=== PATIENT | female | born 1995 | race Caucasian/White ===

== ENCOUNTER 2017-02-02 16:12 | Inpatient (IN) | payer BC ==
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
[2017-02-02] MEDS ORDERED: LIDOCAINE 2% JELLY 20 ML (UROJECT) ONE ×2 (16:47→16:49)
[2017-02-02 17:03] LABS: % IMMATURE GRANULYOCYTES 0.3 % (0.0-1.1); ABSOLUTE IMMATURE GRANULOCYTES 0.02 10^3/uL (0.00-0.10); ADD DIFF? NO; ADD MORPH? NO; ADD SCAN? NO; ATYPICAL LYMPHOCYTE FLAG 0 (0-99); FRAGMENT RBC FLAG 0 (0-99); HEMATOCRIT 42.3 % (38.0-47.0); HEMOGLOBIN 14.1 g/dL (12.6-16.3); LEFT SHIFT FLG 0 (0-99); LIPEMIA HEMOLYSIS FLAG 80 (0-99); MEAN CELL HEMOGLOBIN 32.6 pg (27.9-34.1); MEAN CELL HEMOGLOBIN CONCENTR. 33.3 g/dL (32.4-36.7); MEAN CELL VOLUME 97.7 fL (81.5-99.8); MEAN PLATELET VOLUME 10.2 fL (8.7-11.7); PLATELET CLUMPS FLAG 20 (0-99); PLATELET COUNT 299 10^3/uL (150-400); RED BLOOD CELL COUNT 4.33 10^6/uL (4.18-5.33); RED CELL DISTRIBUTION WIDTH 13.1 % (11.5-15.2)
[2017-02-02 17:15] LABS: ANION GAP 8 mEq/L (8-16); CARBON DIOXIDE 22 mEq/l (22-31); CHLORIDE 107 mEq/L (97-110); CREATININE 0.6 mg/dL (0.6-1.0); ETHANOL SERUM < 10 mg/dL (0-10); GLOMERULAR FILTRATION RATE > 60; GLUCOSE 92 mg/dL (70-100); SALICYLATE < 1.0 mg/dL (2.0-20.0); SODIUM 137 mEq/L (134-144)
[2017-02-02] MEDS ORDERED: LORazepam 1 MG TAB ONE (19:21)
[2017-02-02] MEDS ORDERED: ALPRAZolam 0.25 MG TAB ONE (19:33)
[2017-02-02] MEDS ORDERED: ALPRAZolam 0.25 MG TAB PO ONE (19:41)
[2017-02-03] MEDS ORDERED: MELATONIN 3 MG TAB PO PRN (01:10)
[2017-02-03] MEDS ORDERED: MAG HYDROX/AL HYDROX/SIMETH 30 ML UDCUP PO PRN (01:11)
[2017-02-03] MEDS ORDERED: ACETAMINOPHEN 325 MG TAB PO PRN (01:11)
[2017-02-03] MEDS ORDERED: MAGNESIUM HYDROXIDE 30 ML UDCUP PO PRN (01:11)
[2017-02-03] MEDS ORDERED: GABAPENTIN 100 MG CAP PO SCH (01:15)
[2017-02-03] MEDS: valACYclovir 500 MG TAB PO SCH ×2 (01:30→21:09)
[2017-02-03] MEDS: FLUoxetine 20 MG CAP PO SCH ×2 (01:30→21:10)
[2017-02-03] MEDS: LORazepam 0.5 MG TAB PO PRN ×2 (01:31→21:15)
[2017-02-03] MEDS: PRAZOSIN HCL 5 MG CAP PO SCH ×2 (01:31→21:10)
[2017-02-03] MEDS ORDERED: ZOLPIDEM TARTRATE 5 MG TAB PO PRN (11:28)
--- NOTE | 2017-02-03 15:29 | BCON ---
[f rep st] BEHAVIORAL HEALTH CONSULTATION INTERNAL MEDICINE CONSULTATION DATE OF CONSULTATION: 02/03/2017 REFERRING PHYSICIAN: Dr. Farah REASON FOR REFERRAL: Medical clearance for inpatient behavioral health stay. HISTORY OF PRESENT ILLNESS: The patient came to the emergency department with her friends voluntarily due to suicidal ideation and self-harm. She had been cutting herself with an exacerbation of anxiety. She was evaluated by the mental health team and admitted for further psychiatric care. She currently feels tired. Otherwise, she is without any acute complaints. PAST MEDICAL HISTORY: 1. Psychiatric issues with diagnoses of PTSD, anxiety, OCD and depression. 2. Herpes simplex virus, both oral and genital. 3. 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 PAST SURGICAL HISTORY: She has had facial reconstruction surgery. MEDICATIONS: 1. Fluoxetine 40 mg p.o. daily. 2. Gabapentin 100 mg p.o. daily. 3. Prazosin 5 mg p.o. daily. SOCIAL HISTORY: She is a nonsmoker. She uses alcohol. She lives with roommates. She works in [employer] at the [employer]. FAMILY HISTORY: Noncontributory. REVIEW OF SYSTEMS: She denies pain, dyspnea, cough, chest pain, palpitations, nausea, vomiting, constipation, diarrhea, weight gain or weight loss, dysuria, urinary frequency, joint pain or joint swelling, and otherwise a 10-point review of systems is negative. PHYSICAL EXAMINATION: VITAL SIGNS: From 1:18 this morning, blood pressure was 111/65, heart rate was 73, respiratory rate was 12, oxygen saturation was 97% on room air. Temperature was 36.7 degrees centigrade. Her weight is 52.2 kg for a body mass index of 19.7. GENERAL: This is a well-nourished, well- developed woman, who appears her chronologic age, cooperative and in no acute distress. HEENT: Extraocular movements are intact. Pupils are equal, round, and reactive to light. Mucous membranes are moist. NECK: Supple. HEART: There is a regular rate and rhythm with no murmurs, rubs, or gallops. LUNGS: Clear to auscultation bilaterally. ABDOMEN: Soft, nontender, nondistended with normoactive bowel sounds. EXTREMITIES: There is no cyanosis, clubbing, or edema. NEUROLOGIC: She is alert and oriented x3. Cranial nerves 2 through 12 are grossly intact. There is no focal weakness and sensation is intact to light touch. SKIN: She has dozens of very shallow superficial lacerations on her left upper arm. There is no associated erythema, swelling or purulence. LABORATORY STUDIES: Ordered in the emergency department. CBC was overall within normal limits. She had a minor decrement of absolute lymphocytes of 0.85 and of absolute eosinophils at 0.01, of no clinical significance. Serum chemistry revealed normal renal function and electrolytes. Beta HCG was negative for . Toxicology in the serum was negative for salicylates, acetaminophen or ethyl alcohol, and in the urine was non-negative for marijuana and benzodiazepines but otherwise negative for substances of abuse. ASSESSMENT/RECOMMENDATIONS: 1. Psychiatric issues pending further evaluation and management per Psychiatry and the mental health team. 2. Superficial lacerations. I expect that these will heal spontaneously. 3. History of herpes simplex virus. I see that her valacyclovir has been continued and this is appropriate given that with her acute stress, she is at greater risk for a recurrence. I see no medical contraindications to the patient's continued stay on the inpatient behavioral health unit or to any psychiatric medications or procedures. Thank you very much for including me in the care of this patient and please do not hesitate to contact me or the hospitalist service should there be need for further medical evaluation. /[id number]/MODL MTDD
[2017-02-03] MEDS: GABAPENTIN 300 MG CAP PO SCH ×2 (16:15→21:10)
[2017-02-03] MEDS ORDERED: PRAZOSIN HCL 5 MG CAP PO SCH (21:00)
[2017-02-03] MEDS: MELATONIN 3 MG TAB PO SCH (21:09)
[2017-02-03] MEDS: OLANZapine DISINTEGR 5 MG TAB PO PRN (22:36)
[2017-02-04] MEDS: GABAPENTIN 300 MG CAP PO SCH ×3 (10:53→20:24)
[2017-02-04] MEDS: LORazepam 0.5 MG TAB PO PRN ×2 (12:14→16:18)
[2017-02-04] MEDS ORDERED: ZOLPIDEM TARTRATE 5 MG TAB PO PRN (14:40)
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
[2017-02-04] MEDS: OLANZapine DISINTEGR 5 MG TAB PO PRN (15:46)
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
[2017-02-04] MEDS: MELATONIN 3 MG TAB PO SCH (20:24)
[2017-02-04] MEDS: FLUoxetine 20 MG CAP PO SCH (20:24)
[2017-02-04] MEDS: valACYclovir 500 MG TAB PO SCH (20:24)
[2017-02-04] MEDS: PRAZOSIN HCL 5 MG CAP PO SCH (20:25)
[2017-02-05] MEDS: LORazepam 0.5 MG TAB PO PRN ×3 (07:44→20:43)
[2017-02-05] MEDS: GABAPENTIN 300 MG CAP PO SCH ×2 (07:44→15:45)
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
[2017-02-05] MEDS: OLANZapine DISINTEGR 5 MG TAB PO PRN ×2 (15:45→23:33)
[2017-02-05] MEDS: buPROPion XL 150 MG TAB PO SCH (15:45)
[2017-02-05] MEDS: valACYclovir 500 MG TAB PO SCH (20:43)
[2017-02-05] MEDS: PRAZOSIN HCL 1 MG CAP PO SCH (20:43)
[2017-02-05] MEDS: PRAZOSIN HCL 5 MG CAP PO SCH (20:43)
[2017-02-05] MEDS: MELATONIN 3 MG TAB PO SCH (20:43)
[2017-02-05] MEDS: GABAPENTIN 400 MG CAP PO SCH (20:45)
[2017-02-06] MEDS: LORazepam 0.5 MG TAB PO PRN ×4 (06:19→18:39)
[2017-02-06] MEDS: GABAPENTIN 400 MG CAP PO SCH ×3 (09:34→22:34)
[2017-02-06] MEDS: buPROPion XL 150 MG TAB PO SCH (09:35)
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
[2017-02-06] MEDS: OLANZapine DISINTEGR 5 MG TAB PO PRN ×2 (16:45→22:34)
[2017-02-06] MEDS: MELATONIN 3 MG TAB PO SCH (22:32)
[2017-02-06] MEDS: valACYclovir 500 MG TAB PO SCH (22:32)
[2017-02-06] MEDS: PRAZOSIN HCL 5 MG CAP PO SCH (22:32)
[2017-02-06] MEDS: FLUoxetine 10 MG CAP PO SCH (22:57)
[2017-02-06] MEDS: PRAZOSIN HCL 1 MG CAP PO SCH (22:58)
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
[2017-02-07] MEDS: GABAPENTIN 400 MG CAP PO SCH ×3 (08:32→21:26)
[2017-02-07] MEDS: buPROPion XL 150 MG TAB PO SCH (08:32)
[2017-02-07] MEDS: LORazepam 0.5 MG TAB PO PRN ×2 (08:36→13:32)
[2017-02-07] MEDS: OLANZapine DISINTEGR 5 MG TAB PO PRN (10:51)
[2017-02-07] MEDS: FLUoxetine 10 MG CAP PO SCH ×2 (12:39→21:23)
[2017-02-07] MEDS ORDERED: OLANZapine DISINTEGR 10 MG TAB PO PRN (14:28)
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
[2017-02-07] MEDS: OLANZapine 2.5 MG TAB PO SCH (20:25)
[2017-02-07] MEDS: valACYclovir 500 MG TAB PO SCH (21:22)
[2017-02-07] MEDS: PRAZOSIN HCL 5 MG CAP PO SCH (21:23)
[2017-02-07] MEDS: PRAZOSIN HCL 1 MG CAP PO SCH (21:23)
[2017-02-07] MEDS: MELATONIN 3 MG TAB PO SCH (21:23)
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
[2017-02-08] MEDS: OLANZapine 2.5 MG TAB PO SCH ×3 (07:01→21:14)
[2017-02-08] MEDS: GABAPENTIN 400 MG CAP PO SCH ×3 (08:18→21:14)
[2017-02-08] MEDS: buPROPion XL 150 MG TAB PO SCH (08:18)
[2017-02-08] MEDS: OLANZapine DISINTEGR 5 MG TAB PO PRN (19:40)
[2017-02-08] MEDS: PRAZOSIN HCL 1 MG CAP PO SCH (21:14)
[2017-02-08] MEDS: FLUoxetine 10 MG CAP PO SCH (21:14)
[2017-02-08] MEDS: PRAZOSIN HCL 5 MG CAP PO SCH (21:14)
[2017-02-08] MEDS: MELATONIN 3 MG TAB PO SCH (21:14)
[2017-02-08] MEDS: valACYclovir 500 MG TAB PO SCH (21:14)
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
[2017-02-09] MEDS: buPROPion XL 150 MG TAB PO SCH (07:51)
[2017-02-09] MEDS: OLANZapine 2.5 MG TAB PO SCH ×3 (07:51→21:07)
[2017-02-09] MEDS: GABAPENTIN 400 MG CAP PO SCH ×3 (07:52→21:07)
[2017-02-09] MEDS: OLANZapine DISINTEGR 5 MG TAB PO PRN ×2 (09:44→14:32)
[2017-02-09] MEDS: FLUoxetine 10 MG CAP PO SCH (21:07)
[2017-02-09] MEDS: MELATONIN 3 MG TAB PO SCH (21:07)
[2017-02-09] MEDS: valACYclovir 500 MG TAB PO SCH (21:07)
[2017-02-09] MEDS: PRAZOSIN HCL 5 MG CAP PO SCH (21:07)
[2017-02-09] MEDS: PRAZOSIN HCL 1 MG CAP PO SCH (21:07)
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
[2017-02-10] MEDS: buPROPion XL 150 MG TAB PO SCH (08:40)
[2017-02-10] MEDS: OLANZapine 2.5 MG TAB PO SCH ×3 (08:41→21:30)
[2017-02-10] MEDS: GABAPENTIN 100 MG CAP PO SCH ×3 (08:41→21:28)
[2017-02-10] MEDS: OLANZapine DISINTEGR 5 MG TAB PO PRN (13:41)
[2017-02-10] MEDS: FLUoxetine 10 MG CAP PO SCH (21:28)
[2017-02-10] MEDS: MELATONIN 3 MG TAB PO SCH (21:29)
[2017-02-10] MEDS: PRAZOSIN HCL 1 MG CAP PO SCH (21:30)
[2017-02-10] MEDS: valACYclovir 500 MG TAB PO SCH (21:31)
[2017-02-10] MEDS: PRAZOSIN HCL 5 MG CAP PO SCH (21:31)
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
[2017-02-11] MEDS: GABAPENTIN 100 MG CAP PO SCH ×3 (08:23→20:58)
[2017-02-11] MEDS: buPROPion XL 150 MG TAB PO SCH (08:23)
[2017-02-11] MEDS: OLANZapine 2.5 MG TAB PO SCH ×3 (08:23→20:58)
[2017-02-11] MEDS: OLANZapine DISINTEGR 5 MG TAB PO PRN (11:10)
[2017-02-11] MEDS: FLUoxetine 10 MG CAP PO SCH (20:56)
[2017-02-11] MEDS: MELATONIN 3 MG TAB PO SCH (20:56)
[2017-02-11] MEDS: valACYclovir 500 MG TAB PO SCH (20:57)
[2017-02-11] MEDS: PRAZOSIN HCL 1 MG CAP PO SCH (20:57)
[2017-02-11] MEDS: PRAZOSIN HCL 5 MG CAP PO SCH (20:57)
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
[2017-02-12 06:26] VITALS: BP 122/68; PULSE 79; RESP 14; TEMP 98.4; O2SAT 94
[2017-02-12] MEDS: OLANZapine 2.5 MG TAB PO SCH (08:48)
[2017-02-12] MEDS: GABAPENTIN 100 MG CAP PO SCH (08:48)
[2017-02-12] MEDS: buPROPion XL 150 MG TAB PO SCH (08:48)
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
== END 2017-02-12 10:14 | disposition home or self-care (01) | DRG 885 ==
LOC: BBEH 02-03 00:20
PROVIDERS: ADMIT Psychiatry & Neurology Behavioral Neurology & Neuropsychiatry; ATTEND Psychiatry & Neurology Psychiatry
DX: F33.2 Major depressive disorder, recurrent severe without psychotic features (principal); F41.9 Anxiety disorder, unspecified; F43.12 Post-traumatic stress disorder, chronic; Z91.5 Personal history of self-harm; Z87.790 Personal history of (corrected) congenital malformations of face and neck
CPT/HCPCS: 80305; G0480

== ENCOUNTER 2017-04-18 18:44 | Emergency (ER) | payer BC ==
[2017-04-18 18:49] VITALS: TEMP 97.7
[2017-04-18] MEDS ORDERED: FAMOTIDINE 20 MG/NACL 50 ML IV ONE (19:15)
[2017-04-18] MEDS ORDERED: NS 1,000 ML IV ONE ×2 (19:15→19:55)
[2017-04-18] MEDS ORDERED: ONDANSETRON 4 MG/2 ML VIAL IVP ONE (19:15)
--- NOTE | 2017-04-18 19:17 | EDPHY ---
H & P Time Seen by Provider: 04/18/17 19:01 HPI/ROS: CHIEF COMPLAINT: Nausea and vomiting HISTORY OF PRESENT ILLNESS: Patient is a history of previous cyclic vomiting syndrome and was seen last 2 weeks ago in [place] and then previous to that in December in [place]. She had symptoms since 9:00 a.m. today with multiple episodes of vomiting not bloody or coffee grounds. Mild abdominal cramping. No urinary or vaginal symptoms. No diarrhea. She says these feel identical to previous vomiting episodes she has had in the past. REVIEW OF SYSTEMS: Eye: no change in vision ENT: no sore throat Cardiac: no chest pain or syncope Pulmonary: no cough or SOB Abdomen: HPI, also says she has a lot of heartburn. Musculoskeletal: no back pain Skin: no rash Neuro: no headache Constitutional: no fever : no urinary symptoms A comprehensive 10 point review of systems is otherwise negative aside from elements mentioned in the history of present illness. PAST MEDICAL HISTORY: Facial reconstructive surgery, PTSD and depression, cyclic vomiting Social history: Marijuana smoker General Appearance: Alert and conversant, cooperative. Eyes: Not icteric. ENT, Mouth: Dry mucous membranes. Respiratory: Normal respiratory effort, breath sounds equal, lungs are clear to auscultation. Cardiovascular: Regular rate and rhythm. Gastrointestinal: Abdomen is soft and non tender. No rebound or guarding. Normal bowel sounds. Neurological: Alert and oriented x3. Normally conversant. Face symmetric, normal movement and sensation in all extremities. Skin: Warm and dry, no rashes. Musculoskeletal: No peripheral edema and no joint swelling. Psychiatric: Not agitated. Emergency Department course/MDM: Zofran 4 mg IV and Pepcid 20 mg IV and normal saline 1 L IV. 2026: Feels better, no more vomiting or abdominal pain, wants to be discharged. Primary care referral. 2100: Feels better, wants to go home, has Zofran at home. I think this is reasonable. Smoking Status: Never smoked Constitutional: Initial Vital Signs Temperature (C) 36.5 C 04/18/17 18:47 Heart Rate 74 04/18/17 18:47 Respiratory Rate 18 04/18/17 18:47 Blood Pressure 131/83 H 04/18/17 18:47 O2 Sat (%) 100 04/18/17 18:47 O2 Delivery Mode Room Air Allergies/Adverse Reactions: amoxicillin Allergy (Verified 02/02/17 16:22) codeine Allergy (Verified 02/02/17 16:22) Home Medications: Medication Instructions Recorded FLUoxetine [Prozac 10 MG (*)] 30 mg PO DAILY@2100 #90 cap 02/12/17 Gabapentin [Neurontin 100 MG (*)] 100 mg PO TID #30 cap 02/12/17 Melatonin [Melatonin 3 MG (*)] 3 mg PO HS #30 tab 02/12/17 OLANZapine DISINTEGR [ZyPREXA 5 mg PO Q4H PRN #20 tab 02/12/17 ZYDIS (*)] OLANZapine [ZyPREXA 2.5 mg (*)] 2.5 mg PO TID #90 tab 02/12/17 Prazosin HCl [Minipress 1mg (*)] 1 mg PO HS #30 cap 02/12/17 Prazosin HCl [Minipress 5mg (*)] 5 mg PO HS #30 cap 17 buPROPion XL [Wellbutrin 150mg XL] 300 mg PO DAILY #60 tab 02/12/17 valACYclovir [Valtrex (*)] 1,000 mg PO HS #60 tab 02/12/17 Medical Decision Making Differential Diagnosis: Differential for nausea and vomiting considered including but not limited to , gastroenteritis, cyclic vomiting syndrome, metabolic abnormality. - Data Points Laboratory Results: Laboratory Results 04/18/17 19:05 04/18/17 19:05 04/18/17 04/18/17 04/18/17 19:05 19:05 19:05 WBC 16.84 10^3/uL H 10^3/uL (3.80-9.50) RBC 4.76 10^6/uL 10^6/uL (4.18-5.33) Hgb 15.8 g/dL g/dL (12.6-16.3) Hct 45.3 % % (38.0-47.0) MCV 95.2 fL fL (81.5-99.8) MCH 33.2 pg pg (27.9-34.1) MCHC 34.9 g/dL g/dL (32.4-36.7) RDW 12.6 % % (11.5-15.2) Plt Count 357 10^3/uL 10^3/uL (150-400) MPV 10.2 fL fL (8.7-11.7) Neut % (Auto) 89.0 % H % (39.3-74.2) Lymph % (Auto) 4.5 % L % (15.0-45.0) [place] % (Auto) 5.8 % % (4.5-13.0) Eos % (Auto) 0.0 % L % (0.6-7.6) Baso % (Auto) 0.2 % L % (0.3-1.7) Nucleat RBC Rel Count 0.0 % % (0.0-0.2) Absolute Neuts (auto) 14.99 10^3/uL H 10^3/uL (1.70-6.50) Absolute Lymphs (auto) 0.76 10^3/uL L 10^3/uL (1.00-3.00) Absolute Monos (auto) 0.97 10^3/uL H 10^3/uL (0.30-0.80) Absolute Eos (auto) 0.00 10^3/uL L 10^3/uL (0.03-0.40) Absolute Basos (auto) 0.03 10^3/uL 10^3/uL (0.02-0.10) Absolute Nucleated RBC 0.00 10^3/uL 10^3/uL (0-0.01) Immature Gran % 0.5 % % (0.0-1.1) Immature Gran # 0.09 10^3/uL 10^3/uL (0.00-0.10) Sodium 140 mEq/L mEq/L (134-144) Potassium 4.1 mEq/L mEq/L (3.5-5.2) Chloride 100 mEq/L mEq/L (97-110) Carbon Dioxide 15 mEq/l L mEq/l (22-31) Anion Gap 25 mEq/L H mEq/L (8-16) BUN 13 mg/dL mg/dL (7-23) Creatinine 1.0 mg/dL mg/dL (0.6-1.0) Estimated GFR > 60 Glucose 122 mg/dL H mg/dL (70-100) Calcium 12.0 mg/dL H mg/dL (8.5-10.4) Phosphorus 3.5 mg/dL mg/dL (2.5-4.5) Beta HCG, Qual NEGATIVE Medications Given: Discontinued Medications Sodium Chloride (Ns) 1,000 mls @ 0 mls/hr IV EDNOW ONE; Wide Open PRN Reason: Protocol Stop: 04/18/17 19:16 Last Admin: 04/18/17 19:31 Dose: 1,000 mls Famotidine/Sodium Chloride (Pepcid 20 Mg (Premix)) 50 mls @ 200 mls/hr IV EDNOW ONE Stop: 04/18/17 19:29 Last Admin: 04/18/17 19:32 Dose: 50 mls Sodium Chloride (Ns) 1,000 mls @ 0 mls/hr IV EDNOW ONE; Wide Open PRN Reason: Protocol Stop: 04/18/17 19:56 Last Admin: 04/18/17 20:24 Dose: 1,000 mls Ondansetron HCl (Zofran) 4 mg IVP EDNOW ONE Stop: 04/18/17 19:16 Last Admin: 04/18/17 19:33 Dose: 4 mg Departure - Departure Disposition: Home, Routine, Self-Care Clinical Impression: Dehydration Nausea & vomiting Qualifiers: Vomiting type: unspecified Vomiting Intractability: non-intractable Qualified Code(s): R11.2 - Nausea with vomiting, unspecified Condition: Good Instructions: Acute Nausea and Vomiting (ED) Referrals: Pro Laird MD [Medical Doctor] - As per Instructions
[2017-04-18 19:22] LABS: % IMMATURE GRANULYOCYTES 0.5 % (0.0-1.1); ABSOLUTE IMMATURE GRANULOCYTES 0.09 10^3/uL (0.00-0.10); ADD DIFF? NO; ADD MORPH? NO; ADD SCAN? NO; ATYPICAL LYMPHOCYTE FLAG 0 (0-99); FRAGMENT RBC FLAG 0 (0-99); HEMATOCRIT 45.3 % (38.0-47.0); HEMOGLOBIN 15.8 g/dL (12.6-16.3); LEFT SHIFT FLG 0 (0-99); LIPEMIA HEMOLYSIS FLAG 90 (0-99); MEAN CELL HEMOGLOBIN 33.2 pg (27.9-34.1); MEAN CELL HEMOGLOBIN CONCENTR. 34.9 g/dL (32.4-36.7); MEAN CELL VOLUME 95.2 fL (81.5-99.8); MEAN PLATELET VOLUME 10.2 fL (8.7-11.7); PLATELET CLUMPS FLAG 0 (0-99); PLATELET COUNT 357 10^3/uL (150-400); RED BLOOD CELL COUNT 4.76 10^6/uL (4.18-5.33); RED CELL DISTRIBUTION WIDTH 12.6 % (11.5-15.2)
[2017-04-18 19:36] LABS: ANION GAP 25 mEq/L (8-16); CARBON DIOXIDE 15 mEq/l (22-31); CHLORIDE 100 mEq/L (97-110); GLOMERULAR FILTRATION RATE > 60; GLUCOSE 122 mg/dL (70-100); POTASSIUM 4.1 mEq/L (3.5-5.2); SODIUM 140 mEq/L (134-144)
[2017-04-18 21:16] VITALS: BP 108/56; PULSE 96; RESP 15; O2SAT 96
== END 2017-04-18 21:13 | disposition home or self-care (01) ==
DX: R11.2 Nausea with vomiting, unspecified (principal); E86.0 Dehydration; E86.9 Volume depletion, unspecified
CPT/HCPCS: 96374; J2405

== ENCOUNTER 2017-04-19 13:40 | Emergency (ER) | payer BC ==
--- NOTE | 2017-04-19 13:48 | EDPHY ---
H & P Time Seen by Provider: 04/19/17 13:42 HPI/ROS: CHIEF COMPLAINT: Nausea and vomiting HISTORY OF PRESENT ILLNESS: Patient was seen yesterday in the emergency department by myself for recurrent episode of cyclic vomiting syndrome self- described but the patient. She was treated with Zofran and did well was discharged but did not sleep very well none has been throwing up all day today. No coffee grounds or blood in the emesis. No diarrhea and no abdominal pain. Severe nausea. REVIEW OF SYSTEMS: Eye: no change in vision ENT: no sore throat Cardiac: no chest pain or syncope Pulmonary: no cough or SOB Abdomen: HPI Musculoskeletal: no back pain Skin: no rash Neuro: no headache Constitutional: no fever : no urinary symptoms A comprehensive 10 point review of systems is otherwise negative aside from elements mentioned in the history of present illness. PAST MEDICAL HISTORY: Includes cyclic vomiting syndrome. Facial reconstructive surgery, depression and PTSD. Dr. Pepper's discharge summary dated 03/13/2017 personally reviewed. Social history: Denies alcohol or cannabis in the previous 24 hours. General Appearance: Alert and conversant, cooperative. Eyes: No scleral icterus. ENT, Mouth: Dry mucous membranes. Respiratory: Normal respiratory effort, breath sounds equal, lungs are clear to auscultation. Cardiovascular: Regular rate and rhythm. Gastrointestinal: Abdomen is soft and non tender. Neurological: Alert and oriented x3. Normally conversant. Face symmetric, normal movement and sensation in all extremities. Skin: Warm and dry, no rashes. Musculoskeletal: No peripheral edema and no joint swelling. Psychiatric: Moderately anxious. Emergency Department course/MDM: Normal saline 1 L and Haldol 2.5 mg IV and Benadryl 50 mg IV. Oral Bentyl. Repeat labs to include chemistry and CBC. test was negative yesterday. 1521: Sleeping quietly, asymptomatic. 1735: Feels better, no vomiting, tolerated oral fluids, stable for discharge, wants to go. Smoking Status: Never smoked Constitutional: Initial Vital Signs Temperature (C) 37.0 C 04/19/17 13:51 Heart Rate 73 04/19/17 13:51 Respiratory Rate 16 04/19/17 13:51 Blood Pressure 154/117 H 04/19/17 13:51 O2 Sat (%) 94 04/19/17 13:51 O2 Delivery Mode Room Air Allergies/Adverse Reactions: amoxicillin Allergy (Verified 02/02/17 16:22) codeine Allergy (Verified 02/02/17 16:22) Home Medications: Medication Instructions Recorded FLUoxetine [Prozac 10 MG (*)] 30 mg PO DAILY@2100 #90 cap 02/12/17 Gabapentin [Neurontin 100 MG (*)] 100 mg PO TID #30 cap 02/12/17 Melatonin [Melatonin 3 MG (*)] 3 mg PO HS #30 tab 02/12/17 OLANZapine DISINTEGR [ZyPREXA 5 mg PO Q4H PRN #20 tab 02/12/17 ZYDIS (*)] OLANZapine [ZyPREXA 2.5 mg (*)] 2.5 mg PO TID #90 tab 02/12/17 Prazosin HCl [Minipress 1mg (*)] 1 mg PO HS #30 cap 02/12/17 Prazosin HCl [Minipress 5mg (*)] 5 mg PO HS #30 cap 02/12/17 buPROPion XL [Wellbutrin 150mg XL] 300 mg PO DAILY #60 tab 02/12/17 valACYclovir [Valtrex (*)] 1,000 mg PO HS #60 tab 02/12/17 Medical Decision Making - Data Points Laboratory Results: Laboratory Results 04/19/17 13:52 04/19/17 13:52 04/19/17 04/19/17 13:52 13:52 WBC 11.06 10^3/uL H 10^3/uL (3.80-9.50) RBC 4.10 10^6/uL L 10^6/uL (4.18-5.33) Hgb 13.7 g/dL g/dL (12.6-16.3) Hct 40.4 % % (38.0-47.0) MCV 98.5 fL fL (81.5-99.8) MCH 33.4 pg pg (27.9-34.1) MCHC 33.9 g/dL g/dL (32.4-36.7) RDW 13.2 % % (11.5-15.2) Plt Count 297 10^3/uL D 10^3/uL (150-400) MPV 9.8 fL fL (8.7-11.7) Neut % (Auto) 74.0 % % (39.3-74.2) Lymph % (Auto) 16.5 % % (15.0-45.0) [place] % (Auto) 8.7 % % (4.5-13.0) Eos % (Auto) 0.3 % L % (0.6-7.6) Baso % (Auto) 0.2 % L % (0.3-1.7) Nucleat RBC Rel Count 0.0 % % (0.0-0.2) Absolute Neuts (auto) 8.19 10^3/uL H 10^3/uL (1.70-6.50) Absolute Lymphs (auto) 1.83 10^3/uL 10^3/uL (1.00-3.00) Absolute Monos (auto) 0.96 10^3/uL H 10^3/uL (0.30-0.80) Absolute Eos (auto) 0.03 10^3/uL 10^3/uL (0.03-0.40) Absolute Basos (auto) 0.02 10^3/uL 10^3/uL (0.02-0.10) Absolute Nucleated RBC 0.00 10^3/uL 10^3/uL (0-0.01) Immature Gran % 0.3 % % (0.0-1.1) Immature Gran # 0.03 10^3/uL 10^3/uL (0.00-0.10) Sodium 141 mEq/L mEq/L (134-144) Potassium 3.7 mEq/L mEq/L (3.5-5.2) Chloride 108 mEq/L mEq/L (97-110) Carbon Dioxide 15 mEq/l L mEq/l (22-31) Anion Gap 18 mEq/L H mEq/L (8-16) BUN 9 mg/dL mg/dL (7-23) Creatinine 0.8 mg/dL mg/dL (0.6-1.0) Estimated GFR > 60 Glucose 84 mg/dL mg/dL (70-100) Calcium 10.3 mg/dL mg/dL (8.5-10.4) Medications Given: Discontinued Medications Dicyclomine HCl (Bentyl) 20 mg PO EDNOW ONE Stop: 04/19/17 13:51 Last Admin: 04/19/17 14:26 Dose: 20 mg Diphenhydramine HCl (Benadryl Injection) 25 mg IVP EDNOW ONE Stop: 04/19/17 13:51 Last Admin: 04/19/17 14:03 Dose: 25 mg Haloperidol Lactate (Haldol Injection) 2.5 mg IVP EDNOW ONE Stop: 04/19/17 13:51 Last Admin: 04/19/17 14:04 Dose: 2.5 mg Sodium Chloride (Ns) 1,000 mls @ 0 mls/hr IV EDNOW ONE; Wide Open PRN Reason: Protocol Stop: 04/19/17 13:52 Last Admin: 04/19/17 14:01 Dose: 1,000 mls Lorazepam (Ativan Injection) 0.5 mg IVP EDNOW ONE Stop: 04/19/17 13:53 Last Admin: 04/19/17 14:00 Dose: 0.5 mg Departure - Departure Disposition: Home, Routine, Self-Care Clinical Impression: Nausea & vomiting Qualifiers: Vomiting type: cyclical vomiting Vomiting Intractability: non-intractable Qualified Code(s): G43.A0 - Cyclical vomiting, not intractable Condition: Good Instructions: Acute Nausea and Vomiting (ED) Referrals: Pro Laird MD [Medical Doctor] - As per Instructions
[2017-04-19] MEDS ORDERED: HALOPERIDOL LACT 5 MG/ML INJ IVP ONE (13:50)
[2017-04-19] MEDS ORDERED: DICYCLOMINE 20 MG TAB PO ONE (13:50)
[2017-04-19] MEDS ORDERED: NS 1,000 ML IV ONE (13:51)
[2017-04-19] MEDS ORDERED: LORazepam 2 MG/ML INJ IVP ONE (13:52)
[2017-04-19 14:04] LABS: % IMMATURE GRANULYOCYTES 0.3 % (0.0-1.1); ABSOLUTE IMMATURE GRANULOCYTES 0.03 10^3/uL (0.00-0.10); ADD DIFF? NO; ADD MORPH? NO; ADD SCAN? NO; ATYPICAL LYMPHOCYTE FLAG 0 (0-99); FRAGMENT RBC FLAG 0 (0-99); HEMATOCRIT 40.4 % (38.0-47.0); HEMOGLOBIN 13.7 g/dL (12.6-16.3); LEFT SHIFT FLG 0 (0-99); LIPEMIA HEMOLYSIS FLAG 90 (0-99); MEAN CELL HEMOGLOBIN 33.4 pg (27.9-34.1); MEAN CELL HEMOGLOBIN CONCENTR. 33.9 g/dL (32.4-36.7); MEAN CELL VOLUME 98.5 fL (81.5-99.8); MEAN PLATELET VOLUME 9.8 fL (8.7-11.7); PLATELET CLUMPS FLAG 0 (0-99); PLATELET COUNT 297 10^3/uL (150-400); RED CELL DISTRIBUTION WIDTH 13.2 % (11.5-15.2)
[2017-04-19 14:15] LABS: ANION GAP 18 mEq/L (8-16); CALCIUM 10.3 mg/dL (8.5-10.4); CARBON DIOXIDE 15 mEq/l (22-31); CHLORIDE 108 mEq/L (97-110); CREATININE 0.8 mg/dL (0.6-1.0); GLOMERULAR FILTRATION RATE > 60; GLUCOSE 84 mg/dL (70-100); POTASSIUM 3.7 mEq/L (3.5-5.2); SODIUM 141 mEq/L (134-144)
[2017-04-19 18:14] VITALS: BP 104/60; PULSE 76; RESP 16; TEMP 97.2; O2SAT 96
== END 2017-04-19 18:25 | disposition home or self-care (01) ==
LOC: EDUNIT#
DX: G43.A0 Cyclical vomiting, in migraine, not intractable (principal); E86.9 Volume depletion, unspecified
CPT/HCPCS: 96374; J1200; J2060